=== PATIENT | female | born 1945 | race Caucasian/White ===

== ENCOUNTER 2016-08-09 03:53 | Observation (INO) | payer OTHER ==
[~2016-08-09] VITALS: Ht 157.5 cm; Wt 89.7 kg
[~2016-08-09 03:53] MED LIST: ALEVE220 M2 PO; ASPIRIN325 MG PO; CIPROFLOXACIN500 M1 PO; CLEOCIN300 MG PO; DICYCLOMINE HCL20 MG PO; DULOXETINE HCL30 MG PO; FLORASTOR250 MG PO; GLIPIZIDE10 MG PO; GLIPIZIDE5 MG PO; LEVAQUIN750 MG PO; LIPITOR80 MG PO; LOTRISONE15 GM TP; METFORMIN HCL1000 M1 PO; METFORMIN HCL1000 MG PO; MUPIROCIN22 GM TP; SALINE NOSE SPR45 M1 BOTH NARES; TRIAMCINOLONE A15 GM TP; ULTRAM50 MG PO
[2016-08-09 04:45] LABS: HEMATOCRIT 36.6 % (36.0-46.0); MCH 30.2 PG (29.0-34.0); MCHC 31.4 G/DL (30.0-36.0); MCV 96.1 FL (83-99); MEAN PLAT.VOLUME 10.1 uM^3 (9.5-12.4); PLATELET COUNT 222 K/uL (156-360); RBC DIS.WIDTH-CV 14.4 % (11.8-14.6); RBC DIS.WIDTH-SD 50.7 % (39-53); RED BLOOD COUNT 3.81 M/uL (3.80-5.20)
[2016-08-09 04:53] LABS: CHLORIDE 107 mEq/L (99-109); POTASSIUM 4.5 mEq/L (3.7-5.4); SODIUM 142 mEq/L (136-147)
[2016-08-09 04:54] LABS: GLUCOSE 147 mg/dL (70-99)
[2016-08-09 04:56] LABS: ANION GAP 8 MEQ/L (2-14)
[2016-08-09 04:58] LABS: GFR ESTIMATE (CALCULATED) 47 mL/min/
[2016-08-09 04:59] LABS: UREA NITROGEN (BUN) 14 mg/dL (9-23)
[2016-08-09 05:00] LABS: TROP-I INTERPRETATION NEGATIVE; TROPONIN-I < 0.01 ng/mL (0.0-0.30)
[2016-08-09] MEDS ORDERED: GLIPIZIDE XL10 MG PO ×2 (07:51→07:52)
[2016-08-09 10:10] LABS: HDL CHOLESTEROL 44 MG/DL (Desirable>=50); LDL CHOLESTEROL 77 mg/dL (Desirable<100); NON-HDL CHOLESTEROL 116 mg/dL (Desirable<160); TOTAL CHOLESTEROL 160 mg/dL (Desirable<200); TRIGLYCERIDES 193 MG/DL (Normal: <150)
[2016-08-09 10:51] VITALS: BP 136/67
[2016-08-09 12:23] LABS: POINT-OF-CARE METER ID UU13113700
[2016-08-09 13:31] LABS: Estimated Average Glucose 157 mg/dL (70-123); HEMOGLOBIN A1c (GLYCOHEMOGLOB) 7.1 % HGB (Below 5.7)
[2016-08-09 13:38] LABS: TROP-I INTERPRETATION NEGATIVE; TROPONIN-I < 0.01 ng/mL (0.0-0.30)
[2016-08-09 15:57] VITALS: BP 123/56
[2016-08-09 18:16] LABS: TROP-I INTERPRETATION NEGATIVE; TROPONIN-I < 0.01 ng/mL (0.0-0.30)
[2016-08-09 19:30] VITALS: BP 139/63
[2016-08-09 21:26] LABS: POINT-OF-CARE METER ID UU14162513
[2016-08-09 23:50] VITALS: BP 145/65
[2016-08-10 04:53] VITALS: BP 152/67
[2016-08-10 07:19] VITALS: BP 158/69
[2016-08-10 08:29] LABS: POINT-OF-CARE METER ID UU13113831
[2016-08-10] MEDS ORDERED: LOPRESSOR25 MG PO (08:49)
[2016-08-10] MEDS ORDERED: TRAMADOL HCL50 MG PO (08:49)
== END 2016-08-10 10:49 | disposition home or self-care (01) ==
LOC: EME 03:53 → EDOF 08:04 → 5WEST 08:04
PROVIDERS: Hospitalist; Internal Medicine
DX: R07.89 Other chest pain (principal); S39.012A Strain of muscle, fascia and tendon of lower back, initial encounter; I25.10 Atherosclerotic heart disease of native coronary artery without angina pectoris; Z98.61 Coronary angioplasty status; E78.5 Hyperlipidemia, unspecified; D64.9 Anemia, unspecified; E11.40 Type 2 diabetes mellitus with diabetic neuropathy, unspecified; Z79.4 Long term (current) use of insulin; E66.9 Obesity, unspecified; Z68.36 Body mass index [BMI] 36.0-36.9, adult; Z87.19 Personal history of other diseases of the digestive system; Z88.5 Allergy status to narcotic agent; Z88.0 Allergy status to penicillin; Z88.2 Allergy status to sulfonamides
CPT/HCPCS: 71020; 80048; 80061; 82948; 83036; 84484; 85027; 93005; 99281; 99285; G0378; J1815

== ENCOUNTER 2017-12-06 15:20 | Observation (INO) | payer OTHER ==
[~2017-12-06] VITALS: Ht 157.5 cm; Wt 87.5 kg
[~2017-12-06 15:20] MED LIST changes: +GLIPIZIDE XL10 MG PO; +LOPRESSOR25 MG PO; +TRAMADOL HCL50 MG PO
[2017-12-06 17:16] LABS: BASOPHIL (%) 0.6 % (0-1); BASOPHIL COUNT 0.1 K/uL (0-0.1); EOSINOPHIL (%) 2.6 % (0-5); EOSINOPHIL COUNT 0.2 K/uL (0-0.3); HEMATOCRIT 33.5 % (36.0-46.0); HEMOGLOBIN 11.1 G/DL (11.9-15.5); IMMATURE GRANULOCYTE (%) 0.6 % (0.0-0.7); LYMPHOCYTE (%) 22.4 % (15-42); LYMPHOCYTE COUNT 1.9 K/uL (1.0-2.8); MCH 31.9 PG (29.0-34.0); MCHC 33.1 G/DL (30.0-36.0); MCV 96.3 FL (83-99); MONOCYTE (%) 6.3 % (3-12); MONOCYTE COUNT 0.5 K/uL (0-0.8); NEUTROPHIL (%) 67.5 % (45-76); NEUTROPHIL COUNT 5.6 K/uL (1.8-6.4); PLATELET COUNT 215 K/uL (156-360); RBC DIS.WIDTH-CV 13.1 % (11.8-14.6); RBC DIS.WIDTH-SD 45.7 % (39-53); RED BLOOD COUNT 3.48 M/uL (3.80-5.20); WHITE BLOOD COUNT 8.4 K/uL (4.1-10.2)
[2017-12-06 17:24] LABS: CHLORIDE 103 mEq/L (99-109); POTASSIUM 4.4 mEq/L (3.7-5.4); SODIUM 139 mEq/L (136-147)
[2017-12-06 17:25] LABS: PTT 31.1 SEC (25-37)
[2017-12-06 17:26] LABS: GLUCOSE 113 mg/dL (70-99)
[2017-12-06 17:27] LABS: TOTAL PROTEIN 6.6 g/dL (6.4-8.3)
[2017-12-06 17:28] LABS: TOTAL BILIRUBIN 1.3 mg/dL (0.0-1.0)
[2017-12-06 17:30] LABS: ALKALINE PHOSPHATASE 79 IU/L (3-129); CREATININE 1.3 mg/dL (0.6-1.3); GFR ESTIMATE (CALCULATED) 43 mL/min/
[2017-12-06 17:31] LABS: UREA NITROGEN (BUN) 22 mg/dL (9-23)
[2017-12-06 17:32] LABS: AST (GOT) 16 IU/L (2-34)
[2017-12-06 17:33] LABS: ALT (GPT) 15 IU/L (3-49); LIPASE 65 U/L (1.0-51.0)
[2017-12-06 17:36] LABS: TROP-I INTERPRETATION NEGATIVE; TROPONIN-I < 0.01 ng/mL (0.0-0.30)
[2017-12-06] MEDS ORDERED: ALEVE220 MG PO (17:43)
[2017-12-06] MEDS ORDERED: LO-DOSE ASPIRIN81 M1 PO (17:44)
[2017-12-06] MEDS ORDERED: B-121000 MC2 PO (17:44)
[2017-12-06 23:44] LABS: TROP-I INTERPRETATION NEGATIVE; TROPONIN-I < 0.01 ng/mL (0.0-0.30)
[2017-12-07 03:54] VITALS: BP 131/87
[2017-12-07 05:25] LABS: BASOPHIL (%) 0.5 % (0-1); EOSINOPHIL COUNT 0.2 K/uL (0-0.3); HEMATOCRIT 33.2 % (36.0-46.0); HEMOGLOBIN 10.5 G/DL (11.9-15.5); IMMATURE GRANULOCYTE (%) 0.4 % (0.0-0.7); LYMPHOCYTE (%) 27.5 % (15-42); MCH 30.7 PG (29.0-34.0); MCHC 31.6 G/DL (30.0-36.0); MCV 97.1 FL (83-99); MONOCYTE (%) 9.3 % (3-12); MONOCYTE COUNT 0.7 K/uL (0-0.8); NEUTROPHIL (%) 59.3 % (45-76); NEUTROPHIL COUNT 4.4 K/uL (1.8-6.4); PLATELET COUNT 200 K/uL (156-360); RBC DIS.WIDTH-CV 13.1 % (11.8-14.6); RBC DIS.WIDTH-SD 47.2 % (39-53); RED BLOOD COUNT 3.42 M/uL (3.80-5.20); WHITE BLOOD COUNT 7.4 K/uL (4.1-10.2)
[2017-12-07 05:45] LABS: TROP-I INTERPRETATION NEGATIVE; TROPONIN-I < 0.01 ng/mL (0.0-0.30)
[2017-12-07 06:14] LABS: ALBUMIN 3.3 G/DL (3.2-4.8); ALKALINE PHOSPHATASE 59 IU/L (3-129); ALT (GPT) 11 IU/L (3-49); AST (GOT) 13 IU/L (2-34); CHLORIDE 107 MEQ/L (99-109); CREATININE 1.3 MG/DL (0.6-1.3); DIRECT BILIRUBIN 0.1 mg/dL (0.0-0.3); GFR ESTIMATE (CALCULATED) 43 mL/min/; GLUCOSE 149 mg/dL (70-99); POTASSIUM 4.1 MEQ/L (3.7-5.4); SODIUM 141 MEQ/L (136-147); TOTAL BILIRUBIN 0.9 MG/DL (0.0-1.0); TOTAL PROTEIN 5.9 G/DL (6.4-8.3); UREA NITROGEN (BUN) 28 mg/dL (9-23)
[2017-12-07 11:16] VITALS: BP 188/88
[2017-12-07 16:08] VITALS: BP 145/72
== END 2017-12-07 18:34 | disposition home or self-care (01) ==
LOC: EME 15:20 → 4SOUTH 19:42 → EDOF 19:42 → ENRESERV 19:44 → 4SOUTH 21:43 → ENPENDDIS 12-07 → 4SOUTH 12-07 18:34
PROVIDERS: Emergency Medicine; Hospitalist; Physician Assistant
DX: R55 Syncope and collapse (principal); I65.21 Occlusion and stenosis of right carotid artery; I25.10 Atherosclerotic heart disease of native coronary artery without angina pectoris; Z95.5 Presence of coronary angioplasty implant and graft; I35.0 Nonrheumatic aortic (valve) stenosis; E11.40 Type 2 diabetes mellitus with diabetic neuropathy, unspecified; I10 Essential (primary) hypertension; E78.5 Hyperlipidemia, unspecified; Z98.890 Other specified postprocedural states; Z90.49 Acquired absence of other specified parts of digestive tract; Z90.710 Acquired absence of both cervix and uterus; Z87.891 Personal history of nicotine dependence; Z88.0 Allergy status to penicillin; Z88.2 Allergy status to sulfonamides; Z88.5 Allergy status to narcotic agent; Z88.8 Allergy status to other drugs, medicaments and biological substances; Z91.013 Allergy to seafood; Z82.49 Family history of ischemic heart disease and other diseases of the circulatory system; Z82.0 Family history of epilepsy and other diseases of the nervous system; Z79.82 Long term (current) use of aspirin; Z79.84 Long term (current) use of oral hypoglycemic drugs
CPT/HCPCS: 70450; 70498; 71046; 80048; 80053; 80076; 82948; 83690; 84484; 85025; 85610; 85730; 93005; 93306; 93880; 99281; 99285; G0378; J2765